=== PATIENT | female | born 1950 | race Caucasian/White ===

== ENCOUNTER 2020-11-12 08:27 | Emergency (ER) | payer MEDICARE, OTHER ==
[2020-11-12] MEDS: Aspirin 81 MG Tab.Chew PO ONE (08:34)
--- NOTE | 2020-11-12 09:12 | EDM.PDOC ---
ED HPI GENERAL MEDICAL PROBLEM - General Chief Complaint: Chest Pain Time Seen by Provider: 11/12/20 08:27 Source of Information: Reports: Patient History Limitations: Reports: No Limitations - History of Present Illness INITIAL COMMENTS - FREE TEXT/NARRATIVE: Pt. presents to ER with complaints of chest tightness and difficulty breathing. Pt. states that the symptoms started yesterday. She recently had covid 19 and is off quarantine. She was diagnosed mid September and during the time of her illness did not have any symptoms such as this. Symptom onset was rapid. Denies any gradual onset of symptoms. Denies any cough. No hemoptysis. Denies any current fever or chills. She states the shortness of breath became more evident last evening. Primary symptom at onset of this illness was headache and fatigue which have improved. Denies any radiation into jaw, arms, neck or back. No increased peripheral edema. No hemoptysis. She states that chest tightness is worse with deep breathing. Middle Chest Pain Score (Numeric/FACES): 6 - Related Data Allergies Allergy/AdvReac Type Severity Reaction Status Date / Time No Known Allergies Allergy Verified 11/12/20 08:52 Home Meds: Home Meds . [No Known Home Meds] 11/12/20 [History] Past Medical History - Past Health History Medical/Surgical History: Denies Medical/Surgical History - Infectious Disease History Infectious Disease History: Reports: Novel Coronavirus Social & Family History - Tobacco Use Tobacco Use Status *Q: Unknown Ever Used Tobacco ED ROS GENERAL - Review of Systems Review Of Systems: See Below Constitutional: Reports: No Symptoms Respiratory: Reports: Shortness of Breath, Pleuritic Chest Pain Cardiovascular: Reports: Chest Pain Endocrine: Reports: No Symptoms GI/Abdominal: Reports: No Symptoms : Reports: No Symptoms Musculoskeletal: Reports: No Symptoms Skin: Reports: No Symptoms Neurological: Reports: No Symptoms Psychiatric: Reports: No Symptoms Hematologic/Lymphatic: Reports: No Symptoms Immunologic: Reports: No Symptoms ED EXAM, GENERAL - Physical Exam Exam: See Below Exam Limited By: No Limitations General Appearance: Alert, WD/WN, No Apparent Distress Head: Atraumatic, Normocephalic Respiratory/Chest: No Accessory Muscle Use, Decreased Breath Sounds, Wheezing, Other (increased discomfort on palpation of anterior chest wall.) Cardiovascular: Normal Peripheral Pulses, Regular Rate, Rhythm, No Edema, No JVD, No Murmur Peripheral Pulses: 4+: Radial (L) GI/Abdominal: Soft, Non-Tender, No Distention, No Mass (Female) Exam: Deferred Rectal (Female) Exam: Deferred Extremities: Normal Inspection, Normal Range of Motion, Non-Tender, No Pedal Ed diana, Normal Capillary Refill Neurological: Alert, Oriented, CN II-XII Intact, Normal Cognition, Normal Reflexes, No Motor/Sensory Deficits Psychiatric: Normal Affect, Normal Mood Skin Exam: Warm, Dry, Intact, Normal Color Lymphatic: No Adenopathy Course - Vital Signs Last Recorded V/S: Last Vital Signs Temp 36.7 C 11/12/20 08:27 Pulse 70 11/12/20 10:17 Resp 16 11/12/20 10:17 BP 118/66 11/12/20 10:17 Pulse Ox 96 11/12/20 10:17 - Orders/Labs/Meds Orders: Active Orders 24 hr Category Date Time Status EKG Documentation Completion [RC] STAT Care 11/12/20 08:47 Active Labs: Laboratory Tests 11/12/20 11/12/20 11/12/20 Range/Units 09:01 09:01 09:01 WBC 5.1 (4.0-10.0) x10^3/uL RBC 4.88 (4.00-5.50) x10^6/uL Hgb 14.1 (12.0-16.0) g/dL Hct 41.1 (33.0-47.0) % MCV 84.2 (78.0-93.0) fL MCH 28.9 (26.0-32.0) pg MCHC 34.3 (32.0-36.0) g/dL RDW Coeff of Fide 13.2 (10.0-15.0) % Plt Count 248 (130-400) x10^3/uL Add Manual Diff Yes Neutrophils % (Manual) 68 (50-80) % Band Neutrophils % 2 (0-6) % Lymphocytes % (Manual) 27 (25-50) % Monocytes % (Manual) 3 (2-11) % Platelet Estimate Adequate PT 10.3 (9.5-12.3) SEC INR 0.9 L (2.0-3.5) APTT (25.6-32.8) SEC D-Dimer, Quantitative 0.78 H (<=0.58) mg/LFEU Sodium 139 (136-145) mmol/L Potassium 4.0 (3.5-5.1) mmol/L Chloride 105 (98-107) mmol/L Carbon Dioxide 23 (21-32) mmol/L Anion Gap 15.0 (10-20) mmol/L BUN 14 (7-18) mg/dL Creatinine 0.9 (0.55-1.02) mg/dL Est Cr Clr Drug Dosing TNP Estimated GFR (MDRD) > 60 Glucose 117 H (74-106) mg/dL Calcium 8.8 (8.5-10.1) mg/dL Corrected Calcium 9.28 (8.5-10.1) mg/dL Magnesium 1.8 (1.8-2.4) mg/dL Total Bilirubin 0.9 (0.2-1.0) mg/dL AST 29 (15-37) U/L ALT 61 H (14-59) U/L Alkaline Phosphatase 153 H (46-116) U/L Troponin I < 0.017 (<=0.056) ng/mL C-Reactive Protein 3.9 H (<=0.9) mg/dL NT-Pro-B Natriuret Pep 136 H (<=125) pg/mL Total Protein 7.6 (6.4-8.2) g/dL Albumin 3.4 (3.4-5.0) g/dL Globulin 4.2 Albumin/Globulin Ratio 0.81 12/15/20 Range/Units 09:01 WBC (4.0-10.0) x10^3/uL RBC (4.00-5.50) x10^6/uL Hgb (12.0-16.0) g/dL Hct (33.0-47.0) % MCV (78.0-93.0) fL MCH (26.0-32.0) pg MCHC (32.0-36.0) g/dL RDW Coeff of Fide (10.0-15.0) % Plt Count (130-400) x10^3/uL Add Manual Diff Neutrophils % (Manual) (50-80) % Band Neutrophils % (0-6) % Lymphocytes % (Manual) (25-50) % Monocytes % (Manual) (2-11) % Platelet Estimate PT (9.5-12.3) SEC INR (2.0-3.5) APTT 31.9 (25.6-32.8) SEC D-Dimer, Quantitative (<=0.58) mg/LFEU Sodium (136-145) mmol/L Potassium (3.5-5.1) mmol/L Chloride (98-107) mmol/L Carbon Dioxide (21-32) mmol/L Anion Gap (10-20) mmol/L BUN (7-18) mg/dL Creatinine (0.55-1.02) mg/dL Est Cr Clr Drug Dosing Estimated GFR (MDRD) Glucose (74-106) mg/dL Calcium (8.5-10.1) mg/dL Corrected Calcium (8.5-10.1) mg/dL Magnesium (1.8-2.4) mg/dL Total Bilirubin (0.2-1.0) mg/dL AST (15-37) U/L ALT (14-59) U/L Alkaline Phosphatase (46-116) U/L Troponin I (<=0.056) ng/mL C-Reactive Protein (<=0.9) mg/dL NT-Pro-B Natriuret Pep (<=125) pg/mL Total Protein (6.4-8.2) g/dL Albumin (3.4-5.0) g/dL Globulin Albumin/Globulin Ratio Meds: Medications Discontinued Medications Generic Name Dose Route Start Last Admin Trade Name Freq PRN Reason Stop Dose Admin Aspirin 324 mg 11/12/20 08:59 11/12/20 08:34 Aspirin PO 11/12/20 09:00 324 mg ONETIME ONE Administration Iopamidol 100 ml 11/12/20 09:58 11/12/20 10:05 Isovue-300 (61%) IVPUSH 11/12/20 09:59 100 ml ONETIME ONE Administration - Radiology Interpretation Free Text/Narrative:: Chest [id number] patchy infiltrates. CTA chest due to symptoms and positive d dimer-negative for PE. Multiple areas of ground-glass opacification and consolidation throughout all lungs. Departure - Departure Time of Disposition: 11:06 Disposition: Home, Self-Care 01 Clinical Impression: COVID-19, Pneumonia - Discharge Information Instructions: COVID-19, Albuterol inhalation aerosol, Doxycycline tablets or capsules, Nonspecific Chest Pain, Adult, [id number], Dexamethasone tablets, Probiotics Referrals: Jalyn Marshall MD [Primary Care Provider] - Forms: ED Department Discharge Additional Instructions: Doxycycline 100mg 1 twice daily for 10 days Dexamethasone 6mg 1 daily for 10 days Albuterol inhaler 2 puffs every 4-6 hours as needed for trouble breathing. Drink plenty of fluids Recheck in clinic in 10-14 days Return to ER of you have worsening shortness of breath. Sepsis Event Note (ED) - Evaluation Sepsis Screening Result: No Definite Risk - Focused Exam Vital Signs: Vital Signs Temp Pulse Resp BP Pulse Ox 11/12/20 10:17 70 16 118/66 96 11/12/20 08:27 36.7 C 84 20 113/76 97 - Problem List Review Problem List Initiated/Reviewed/Updated: Yes - My Orders Last 24 Hours: My Active Orders 11/12/20 08:47 EKG Documentation Completion [RC] STAT - Assessment/Plan Last 24 Hours: My Active Orders 11/12/20 08:47 EKG Documentation Completion [RC] STAT Plan: Pt. will be discharged. It has been over a month since she was diagnosed with covid 19, so bamlanivimab was not given. Since the symptoms got worse just last night, bacterial coinfection/atypical pneumonia is a possibility. Pt. will subsequently be started on doxycycline 100mg BID for 10 days. Will also start the patient on dexamethasone 6mg daily for 10 days, as well as an albuterol inhaler as needed for shortness of breath. Pt. will follow-up in clinic when she has finished her course of treatment. Advised to return to ER if she has worsening symptoms, increased shortness of breath, or other worrisome signs/symptoms. All questions were answered.
--- NOTE | 2020-11-12 09:17 | CR ---
[id number] RAD/RAD Chest PA or AP 1V EXAM: FRONTAL CHEST INDICATION: CHEST PRESSURE. COMPARISON: None. DISCUSSION: There are mild patchy bilateral infiltrates which are nonspecific, but most suggestive of infection including potential Covid 19. In the absence of Covid 19, interval follow-up would be useful to help further exclude other pathology. Borderline heart size without evidence of edema. IMPRESSION: 1. Mild patchy bilateral infiltrates. Ravindra Echols MD 11/12/20 0916 Thank you for allowing us to participate in the care of your patient.
[2020-11-12 09:32] LABS: CHLORIDE,CL 105 mmol/L (98-107); SODIUM,NA 139 mmol/L (136-145)
[2020-11-12] MEDS: Iopamidol 612 MG/ML 100 ML Bottle IVPUSH ONE (10:05)
--- NOTE | 2020-11-12 10:37 | CT ---
[id number] CT/CTA Chest EXAM: CT ANGIOGRAM CHEST INDICATION: SHORTNESS OF BREATH, POSITIVE D-DIMER. COMPARISON: Radiograph same date. DISCUSSION: The pulmonary arteries are normal in appearance with no emboli identified. There are multifocal bilateral areas of groundglass opacification, crazy paving and consolidation scattered throughout all lobes of both lungs. These changes are nonspecific, but most compatible with infection including Covid 19. No pleural or pericardial effusion. Normal heart size. Mild nonspecific mediastinal lymphadenopathy with a screening representative subcarinal node measuring about 20 x 10 mm and left paratracheal node 15 x 13 mm. The partially imaged liver is prominent in size and demonstrates fatty infiltration. There are scattered degenerative changes in the spine. The osseous structures are otherwise unremarkable. IMPRESSION: 1. Negative for pulmonary embolism. 2. Multiple areas of groundglass opacification, consolidation and crazy paving scattered throughout all lobes of both lungs most consistent with infection including Covid 19. Ravindra Echols MD 11/12/20 1036 Thank you for allowing us to participate in the care of your patient.
== END 2020-11-12 11:07 | disposition home or self-care (01) ==
LOC: VM.ED 08:27
DX: U07.1 COVID-19 (principal); J12.89 Other viral pneumonia
CPT/HCPCS: 36415; 71045; 71275; 80053; 83735; 83880; 84484; 85025; 85379; 85610; 85730; 86140; 87804; 87804-59; 93005; 99284; 99285-25; A9270-GY; Q9967

== ENCOUNTER 2021-02-28 07:12 | Day surgery (SDC) | payer MEDICARE, OTHER ==
[~2021-02-28 07:12] MED LIST: Lactated Ringers 1,000 ML IV SCH
[2021-02-28] MEDS ORDERED: Propofol 200 MG/20 ML SDV ONE ×2 (08:31→09:51)
[2021-02-28] MEDS ORDERED: fentaNYL 100 MCG/2 ML SDV ONE (08:31)
--- NOTE | 2021-02-28 14:01 | OR ---
PREOPERATIVE DIAGNOSES: 1. History of colon polyps. 2. Positive Cologuard. POSTOPERATIVE DIAGNOSES: 1. History of colon polyps. 2. Positive Cologuard. 3. Colon polyps. ANESTHESIA: MAC anesthesia. COMPLICATIONS: None. BLOOD LOSS: Minimal. FINDINGS: 1. Cecal polyp, 15 mm, flat, saline lift with hot snare, clips applied to reapproximate mucosa. 2. Sigmoid polyp, 4 mm, cold snare. START TIME: 0937. CECUM TIME: 0944. STOP TIME: 1021. BOWEL PREP: [place] class 3. INDICATIONS FOR PROCEDURE: Ms. Saravia is a 70-year-old female who had her last scope about 10 years ago and reportedly had a history of polyps. She has resisted getting a repeat colonoscopy. Her PCP ordered a Cologuard which was positive and so the patient agreed to a colonoscopy. She denies bloody or dark black stools. She denies a family history of colon cancer. DETAILS OF PROCEDURE: Informed consent was obtained. The patient was placed in left lateral decubitus position. MAC anesthesia was induced by Anesthesia colleagues. Colonoscope was introduced into the rectum and advanced all the way to the cecum. The appendiceal orifice was photographed. The terminal ileum was intubated and photographed. The colonoscope was then slowly withdrawn. No pathology was identified except for what is mentioned in the above findings section. Retroflexed view was obtained. The patient was awoken from anesthesia by Anesthesia colleagues without incident. PATHOLOGY: Colon. Recommend repeat colonoscopy in years. RKM: 02/28/2021 10:26:27 MODL: 02/28/2021 13:27:39 /[id number]
== END 2021-02-28 11:31 | disposition home or self-care (01) ==
LOC: VM.SDS 07:12
PROVIDERS: ATTEND Student in an Organized Health Care Education/Training Program
DX: D12.0 Benign neoplasm of cecum (principal); D12.5 Benign neoplasm of sigmoid colon; Z79.899 Other long term (current) drug therapy; E66.9 Obesity, unspecified; Z98.890 Other specified postprocedural states
CPT/HCPCS: 00811; J2704; J3010